=== PATIENT | female | born 1995 | race Caucasian/White ===

== ENCOUNTER 2016-09-21 20:45 | Emergency (ER) ==
[2016-09-21 21:55] LABS: BILIRUBIN URINE NEGATIVE (NEGATIVE); BLOOD URINE NEGATIVE (NEGATIVE); CLARITY SL. CLOUDY (CLEAR); COLOR YELLOW; GLUCOSE URINE NEGATIVE (NEGATIVE); LEUKOCYTES URINE 2+ (NEGATIVE); NITRITE URINE NEGATIVE (NEGATIVE); PROTEIN URINE NEGATIVE (NEGATIVE); SP GRAVITY URINE 1.025; UROBILINOGEN URINE NORMAL
[2016-09-21 22:04] LABS: URINE CAST NONE SEEN /LPF; URINE CRYSTAL NONE SEEN /HPF; URINE CULTURE PL NEEDED? YES; URINE EPITHELIAL CELLS >10 /HPF (<10); URINE SOURCE CLEAN CATCH
[2016-09-21] MEDS ORDERED: FLAGYL PO ONE (22:48)
[2016-09-21] MEDS ORDERED: ROCEPHIN IM ONE (22:48)
[2016-09-21] MEDS ORDERED: ZITHROMAX PO ONE (22:48)
[2016-09-21] MEDS ORDERED: XYLOCAINE-MPF 1% INJ ONE (22:48)
--- NOTE | 2016-09-21 22:50 | PROVIDER DOCUMENTATION ---
HPI-Female /OB/Breast - History of Present Illness-Female /OB Does patient report she is ?: No Quality of Pain: reports: cramping Onset/Duration: reports: 1 week ago Timing: reports: still present Context/Activities at Onset: reports: light activity Vaginal Symptoms: reports: discharge, foul odor Vaginal Bleeding Amount: Spotting Sexual intercourse history: reports: Single Partner Modifying Factors: improves with: nothing Similar Symptoms Previously?: No Recently seen or treated by another doctor?: No <Thomas Paige - Last Filed: 09/21/16 22:50> - General Source: reports: patient <Molly Lee - Last Filed: 09/23/16 01:53> - General Chief Complaint: Abdominal Pain Stated Complaint: CRAMPING IN ABD AND BACK Time Seen by Provider: 09/21/16 21:50 Allergies/Adverse Reactions: Patient Allergies Allergy/AdvReac Type Severity Reaction Status Date / Time No Known Allergies Allergy Verified 11/23/15 00:06 Home Medications: Home Medication List Medication Instructions Recorded Confirmed Last Taken Type No Home Medications 09/21/16 09/21/16 Unknown History - History of Present Illness-Female /OB Nature of Presenting Problem: 21 YOF PRESENTS TO ED WITH C/O PT STATES SPOTTING FOR 1 WEEK. PT STATES YELLOW FOUL ODOR, VAGINAL DISCHARGE. PT STATES NO INTERCOURSE PAIN. (Thomas Paige) Review of Systems - Adult - REVIEW OF SYSTEMS - ADULT Constitutional: denies: chills, fever Eyes: reports: no symptoms reported Ears, Nose, Mouth & Throat: reports: no symptoms reported Cardiovascular: denies: chest pain, palpitations, syncope Respiratory: denies: cough, shortness of breath, wheezing Gastrointestinal: reports: abdominal pain (MILD SUPRAPUBIC) Genitourinary: reports: no symptoms reported Musculoskeletal: denies: back pain, neck pain Integumentary: reports: no symptoms reported Neurological: denies: dizziness/vertigo, headache/migraines, syncope Psychiatric: reports: no symptoms reported Endocrine: reports: no symptoms reported Hematologic/Lymphatic: reports: no symptoms reported Allergic/Immunologic: reports: no symptoms reported All Other Systems: Reviewed and Negative <Thomas Paige - Last Filed: 09/21/16 22:50> Past History - Adult - PAST MEDICAL HISTORY-ADULT Review of Records: reports: Nursing Assessment Review, Medications Reviewed - IMMUNIZATION STATUS Childhood Immunizations: See Nurse Assessment Flu Vaccine: See Nurse Assessment - SOCIAL HISTORY Smoking: cigarettes, greater than 1 pack/day Provider spent 3-5 mins advising pt. on dangers of tobacco.: Discussed manners to quit use, and f/u contacts for add'l counseling. Substance Use: denies Alcohol Use Frequency: never Living Situation: family <Thomas Paige - Last Filed: 09/21/16 22:50> - PAST MEDICAL HISTORY-ADULT Major Childhood Illnesses: reports: denies history - PRIOR SURGERIES/PROCEDURES Surgical/Procedure History: reports: tonsillectomy - IMMUNIZATION STATUS Childhood Immunizations: See Nurse Assessment Flu Vaccine: See Nurse Assessment - FAMILY HISTORY Family History: reviewed, not pertinent <Molly Lee - Last Filed: 09/23/16 01:53> Physical Exam-General - CONSTITUTIONAL General Appearance: alert, mild distress - EYES Eyes: PERRL/EOMI, pink conjunctivae - HEAD, EARS, NOSE, MOUTH & THROAT HENMT: normocephalic/atraumatic, moist mucous membranes - NECK Neck: non-tender, full range of motion, supple - RESPIRATORY Respiratory: chest non-tender, lungs clear, normal breath sounds - CARDIOVASCULAR Cardiovascular: normal peripheral pulses, regular rate, rhythm - GASTROINTESTINAL (ABDOMEN) Abdominal Exam: normal bowel sounds, non tender, soft - LYMPHATIC Lymphatic: no adenopathy - MUSCULOSKELETAL Back Exam: normal inspection, no CVA tenderness, no vertebral tenderness Extremity: normal range of motion, non-tender - SKIN Integumentary: normal color, normal turgor, warm/dry - NEUROLOGIC Neurologic: grossly normal - PSYCHIATRIC Psych/Mental Status: oriented x 3 <Thomas Paige - Last Filed: 09/21/16 22:50> Progress <Thomas Paige - Last Filed: 09/21/16 22:50> <Molly Lee - Last Filed: 09/23/16 01:53> - PLAN OF CARE/RESULTS Progress/Plan/Lab Results: Laboratory Tests 09/21/16 09/21/16 21:15 21:15 Urine Source CLEAN CATCH Urine Color YELLOW Urine Clarity SL. CLOUDY A Urine pH 5.0 Ur Specific [place] 1.025 Urine Protein NEGATIVE Urine Ketones NEGATIVE Urine Blood NEGATIVE Urine Nitrite NEGATIVE Urine Bilirubin NEGATIVE Urine Urobilinogen NORMAL Urine Microscopic RBC Not Reportable Urine WBC 2+ A Urine Microscopic WBC 10-20 A Ur Epithelial Cells >10 A Urine Crystals NONE SEEN Urine Bacteria 1+ Urine Casts NONE SEEN Urine Yeast NONE SEEN Urine Glucose NEGATIVE Urine Test NEGATIVE Orders Category Date Time Status CHLAMYDIA AND GC BY PCR URINE [DEWAR] Stat Lab 09/21/16 21:15 Received TEST-URINE [PREG] Stat Lab 09/21/16 21:15 Completed UA NIMS W/REFLEX CULT PL [URINALYSIS] Stat Lab 09/21/16 21:15 Completed URINE CULTURE [RM] Routine Lab 09/21/16 22:05 Received Azithromycin [Zithromax] Med 09/21/16 22:48 Discontinued 1,000 mg PO NOW ONE CefTRIAXONE [Rocephin] Med 09/21/16 22:48 Discontinued 250 mg IM NOW ONE Lidocaine 1% Pf [Xylocaine-Mpf 1%] Med 09/21/16 22:48 Discontinued 5 ml INJ NOW ONE Metronidazole [Flagyl] Med 09/21/16 22:54 Discontinued 2,000 mg .ROUTE .STK-MED ONE Metronidazole [Flagyl] Med 09/21/16 22:48 Discontinued 2,000 mg PO NOW ONE Vital Signs Temp Pulse Resp BP Pulse Ox 09/21/16 23:16 98 F 105 H 16 155/102 98 09/21/16 20:51 98.2 F 90 18 114/70 100 No Known Allergies Allergy (Verified 11/23/15 00:06) No Home Medications 09/21/16 Laboratory 09/21/16 09/21/16 21:15 21:15 Urine Source CLEAN CATCH Urine Color YELLOW Urine Clarity SL. CLOUDY A Urine pH 5.0 Ur Specific [place] 1.025 Urine Protein NEGATIVE Urine Ketones NEGATIVE Urine Blood NEGATIVE Urine Nitrite NEGATIVE Urine Bilirubin NEGATIVE Urine Urobilinogen NORMAL Urine Microscopic RBC Not Reportable Urine WBC 2+ A Urine Microscopic WBC 10-20 A Ur Epithelial Cells >10 A Urine Crystals NONE SEEN Urine Bacteria 1+ Urine Casts NONE SEEN Urine Yeast NONE SEEN Urine Glucose NEGATIVE Urine Test NEGATIVE Discussed results and f/u with pt. (Molly Lee) Departure <Thomas Paige - Last Filed: 09/21/16 22:50> - Departure Time of Disposition Order: 22:45 Certified Medical Emergency: Emergent <Molly Lee - Last Filed: 09/23/16 01:53> - Departure DIAGNOSIS: Trichomonal infection, Prophylactic antibiotic Disposition: HOME 01 Condition: Stable Additional Instructions: Take medications as directed. Follow up with the health department for further recheck with your sexual partner(s). ED Follow Up Instructions: You have been treated by a care provider in the Emergency Department. These instructions are being provided to you so you can have an understanding of how to care for yourself upon discharge. Upon discharge from the Emergency Department, you are responsible for making arrangements for follow-up care by a physician of your choice. Take all prescribed medications as directed. Return to the Emergency Department immediately for any new or worsening symptoms. You may call the Physician Referral phone number at [phone] to obtain a list of Physicians who are taking new patients. Referrals: Conner Fox MD [STAFF PHYSICIAN] - Forms: Return to School/Parent Work Instructions: Trichomoniasis Attestation - Scribe Verification/Attestation Scribe:: Thomas Paige Acting as Scribe for:: Molly Lee Scribe documention review:: This chart was documented by a scribe and accurately reflects the service the provider performed and the decisions made by the provider. <Thomas Paige - Last Filed: 09/21/16 22:50> Physician Attestation
[2016-09-21] MEDS ORDERED: FLAGYL ONE (22:54)
[2016-09-21 23:16] VITALS: BP 155/102
== END 2016-09-21 23:22 | disposition home or self-care (01) ==
LOC: P.ED 20:45
DX: A59.9 Trichomoniasis, unspecified (principal); R10.9 Unspecified abdominal pain; M54.9 Dorsalgia, unspecified; N89.8 Other specified noninflammatory disorders of vagina; N93.9 Abnormal uterine and vaginal bleeding, unspecified; F17.210 Nicotine dependence, cigarettes, uncomplicated; Z71.6 Tobacco abuse counseling
CPT/HCPCS: 81001; 81025; 87088; 87491; 87591; 96372; J0696